=== PATIENT | female | born 2000 | race Two or more races ===

== ENCOUNTER 2022-11-30 16:32 | Emergency (ER) | payer OTHER | END 2022-11-30 18:53 | disposition home or self-care (01) | LOC: MADERS 16:32 | DX: S09.90XA Unspecified injury of head, initial encounter (principal); S23.3XXA Sprain of ligaments of thoracic spine, initial encounter; S60.011A Contusion of right thumb without damage to nail, initial encounter; S10.91XA Abrasion of unspecified part of neck, initial encounter; V43.62XA Car passenger injured in collision with other type car in traffic accident, initial encounter; Y92.410 Unspecified street and highway as the place of occurrence of the external cause | CPT/HCPCS: 70450 ==